=== PATIENT | male | born 1990 | race Caucasian/White ===

== ENCOUNTER 2022-12-14 00:15 | Emergency (ER) | payer SELFPAY ==
[~2022-12-14] VITALS: Ht 175.3 cm; Wt 100.0 kg
[2022-12-14] MEDS ORDERED: ONDANSETRON HCL 4MG/2ML INJ IV ONE (01:15)
[2022-12-14 01:50] VITALS: BP 178/109
[2022-12-14] MEDS ORDERED: LISINOPRIL 10MG TABLET PO ONE (02:00)
[2022-12-14 02:19] LABS: BASOPHILS % 0.5 % (0.0-2.0); EOSINOPHILS % 0.2 % (0.0-5.0); HEMATOCRIT. 52.2 % (42.0-52.0); HEMOGLOBIN. 16.9 g/dL (14.0-18.0); LYMPHOCYTES % 15.4 % (20.0-50.0); MEAN CORPUSCULAR VOLUME 86.7 fL (80.0-94.0); MEAN PLATELET VOLUME 9.7 fl (7.4-10.4); MONOCYTES % 6.6 % (2.0-8.0); NEUTROPHILS % 77.3 % (40.0-76.0); PLATELET 170 x1000/uL (130-400); RED BLOOD CELL COUNT 6.02 mill/uL (4.7-6.1); RED CELL DISTRIBUTION WIDTH 13.7 % (11.6-14.6)
[2022-12-14 02:28] LABS: CHLORIDE 105 mEq/L (98-107)
== END 2022-12-14 03:30 | disposition left against medical advice (07) ==
LOC: ER 00:15
DX: I10 Essential (primary) hypertension (principal); Z88.0 Allergy status to penicillin
CPT/HCPCS: 36415; 80053; 83880; 85025; 93005; 96374; 99284; J2405; Z7610